=== PATIENT | female | born 1985 | race African-American/Black ===

== ENCOUNTER → 2023-01-31 10:39 | Outpatient (BNVA) | payer OTHER, SELFPAY | PROVIDERS: PCP Internal Medicine; Visit Provider Physician Assistant Surgical ==

== ENCOUNTER → 2023-02-14 08:04 | Outpatient (BNVA) | payer OTHER, SELFPAY | PROVIDERS: PCP Internal Medicine; Visit Provider Surgery ==

== ENCOUNTER 2023-02-27 07:36 | Outpatient (REF) | payer OTHER, SELFPAY ==
--- NOTE | ~2023-02-27 | XR_ITS ---
EXAMINATION: XR CHEST CLINICAL INFORMATION: Obesity COMPARISON: None available. TECHNIQUE: 2 views of the chest were obtained. FINDINGS: No significant abnormality is noted involving the heart, lungs, mediastinum, bony thorax or soft tissues. XR/XR chest 2V IMPRESSION: Unremarkable examination.
--- NOTE | 2023-02-27 08:01 | ECG_ITS ---
Test Reason : e66.9 Blood Pressure : / mmHG Vent. Rate : 083 BPM Atrial Rate : 083 BPM P-R Int : 122 ms QRS Dur : 088 ms QT Int : 386 ms P-R-T Axes : 028 019 -28 degrees QTc Int : 453 ms Normal sinus rhythm T wave abnormality, consider inferior ischemia Abnormal ECG No previous ECGs available Referred By: Brendon Otto Electronically Signed By:Anthony Curiel
[2023-02-27 08:09] LABS: MANUAL DIFF FLAG NO
[2023-02-27 08:43] LABS: Basophils Percent Auto 0.5 % (0-2); Eosinophils Absolute Auto 0.1 X10*3/uL (0.0-0.4); Eosinophils Percent Auto 1.1 % (0-4); Hematocrit 39.3 % (37.0-47.0); Hemoglobin 13.3 g/dl (12.0-16.0); Imm Gran Abs Auto 0.03 X10*3/uL (0.00-0.03); Imm Gran Pct Auto 0.3 % (0.0-0.4); Lymphocytes Absolute Auto 3.1 X10*3/uL (1.2-4.9); Lymphocytes Percent Auto 35.1 % (20-40); Mean Corpuscular HGB Conc 33.8 g/dl (31.0-35.0); Mean Corpuscular Hemoglobin 31.9 pg (27.0-33.0); Mean Corpuscular Volume 94.2 fL (80.0-98.0); Mean Platelet Volume 9.3 fL (9.4-12.3); Monocytes Absolute Auto 0.7 X10*3/uL (0.1-1.2); Monocytes Percent Auto 7.8 % (2-11); Neutrophils Absolute Auto 4.9 x10*3/uL (2.0-8.3); Neutrophils Percent Auto 55.2 % (45-73); Platelet Count 333 X10*3/uL (160-400); Red Blood Count 4.17 X10*6/uL (4.20-5.50); Red Cell Distribution Width 12.6 % (11.0-16.0); White Blood Count 8.9 X10*3/uL (4.8-10.8)
[2023-02-27 09:18] LABS: Estimated Average Glucose 108 mg/dL; Hemoglobin A1c % 5.4 %
[2023-02-27 09:25] LABS: Alanine Aminotransferase 23 U/L (0-31); Albumin Level 4.3 g/dL (3.5-5.0); Alkaline Phosphatase 30 U/L (39-117); Anion Gap 15 (12-20); Aspartate Amino Transferase 18 U/L (5-31); Bilirubin Total 0.7 mg/dL (0.0-1.0); Blood Urea Nitrogen 19 mg/dL (9-16); C Reactive Protein 0.27 mg/dL (< or = 0.50); Calcium 9.6 mg/dL (8.4-10.2); Carbon Dioxide 23 mmol/L (22-29); Chloride 107 mmol/L (96-108); Cholesterol 262 mg/dL; Estimated Glomerular Filt Rate 49; Glucose Random 111 mg/dL (60-115); HDL Cholesterol 42 mg/dL; Iron 88 mcg/dL (30-160); LDL Cholesterol Calculated 175 mg/dl; Percent Iron Saturation 24 % (15-50); Potassium 4.6 mmol/L (3.3-5.1); Sodium 140 mmol/L (135-145); Total Iron Binding Capacity 372 mcg/dL (228-428); Total Protein 7.5 g/dL (6.5-8.0); Triglycerides 226 mg/dL; Unsaturated Iron Binding 284 ug/dL
[2023-02-27 09:54] LABS: Ferritin 209 ng/mL (10-122); Folate 13.7 ng/mL (> or = 4.0); Insulin 24 uU/mL (2-29); TSH reflex Free T4 1.23 uIU/mL (0.32-4.0); Vitamin B12 304 pg/mL (200-900); Vitamin D 25-OH Total 38.9 ng/mL (>30)
[2023-03-03 15:54] LABS: Calcium (PTHI) 9.6 mg/dL (8.6-10.2); PTHI 70 pg/mL (16-77)
[2023-03-05 03:33] LABS: Zinc 71 mcg/dL (60-130)
[2023-03-06 14:07] LABS: Vitamin A 92 mcg/dL (38-98)
[2023-03-08 07:18] LABS: Vitamin B1 18 nmol/L (8-30)
== END 2023-02-27 07:37 | disposition home or self-care (01) ==
LOC: HO.XRAY 07:36
PROVIDERS: PCP Internal Medicine; Visit Provider Surgery
DX: E66.9 Obesity, unspecified (principal); G47.33 Obstructive sleep apnea (adult) (pediatric); I10 Essential (primary) hypertension; K21.9 Gastro-esophageal reflux disease without esophagitis; Z68.39 Body mass index [BMI] 39.0-39.9, adult; Z99.89 Dependence on other enabling machines and devices
CPT/HCPCS: 36415; 71046; 80053; 80061; 82306; 82607; 82728; 82746; 83036; 83525; 83540; 83970; 84425; 84443; 84590; 84630; 85025; 86140; 93005

== ENCOUNTER 2023-03-07 08:55 | Outpatient (REF) | payer OTHER, SELFPAY ==
--- NOTE | ~2023-03-07 | US_ITS ---
EXAMINATION: US COMPLETE ABDOMEN WITH LIVER ELASTOGRAPHY CLINICAL INFORMATION: Obesity. COMPARISON: None available. TECHNIQUE: Real-time imaging of the abdominal viscera. Noninvasive ultrasound liver fibrosis assessment is performed using Jesenia ElastPQ point quantification shear wave elastography (2D-SWE) with a C5-2 MHz transducer. Multiple elastography samples are obtained. FINDINGS: PANCREAS: Normal. The visualized pancreatic head and body are normal in appearance. The remainder of the pancreas is obscured from visualization by the overlying bowel gas. ABDOMINAL AORTA: The proximal, middle, and distal aortic segments are normal in caliber. INFERIOR VENA CAVA: Visualized portions are normal. LIVER: The liver demonstrates normal size, contour and mildly increased echogenicity. No focal lesion or intrahepatic biliary duct dilatation. The right lobe measures 18.1 cm in length. The left lobe measures 12.7 cm in length. Portal flow is towards the liver (hepatopetal). Shear wave liver elastography median stiffness is 1.73 m/s (reference: normal median stiffness is 1.3 m/s or less). IQR/median stiffness to assess sampling precision is 0.12 (reference: good quality data set is IQR/median stiffness of 0.15 or less). GALLBLADDER: Normal. The gallbladder is physiologically distended without evidence of stones, sludge, polyps, wall thickening or pericholecystic fluid. COMMON BILE DUCT: Normal in caliber measuring 0.3 cm in diameter. RIGHT KIDNEY: Normal. No hydronephrosis. No renal calculi or focal parenchymal lesions. The kidney measures 8.9 cm in maximum dimension. LEFT KIDNEY: Normal. No hydronephrosis. No renal calculi or focal parenchymal lesions. The kidney measures 9.9 cm in maximum dimension. SPLEEN: Normal. The spleen measures 8.8 cm in maximum dimension. FREE FLUID: None. US/US abdomen comp w elastography IMPRESSION: 1. There is generalized increase in hepatic echotexture, consistent with fatty infiltration or hepatocellular disease. Please correlate clinically. No focal hepatic mass or intrahepatic biliary dilatation is seen. 2. Liver elastography: Measurements are suggestive of compensated advanced chronic liver disease but need further test for confirmation. REFERENCE: Society of Radiologists in Ultrasound Liver Stiffness Thresholds (2020): LIVER STIFFNESS THRESHOLDS: *Liver Stiffness equal or less than 1.3 m/s: High probability of being normal. *Liver Stiffness less than 1.7 m/s: In the absence of other known clinical signs, rules out compensated advanced chronic liver disease. *Liver Stiffness 1.7-2.1 m/s: Suggestive of compensated advanced chronic liver disease but need further test for confirmation. *Liver Stiffness over 2.1 m/s: Rules in compensated advanced chronic liver disease. *Liver Stiffness over 2.4 m/s: Suggestive of clinically significant portal hypertension. QUALITY OF DATA SET: *IQR/Median value equal or less than 0.15 implies a quality data set. *IQR/Median value over 0.15 implies a poor quality data set. SIGNIFICANT CHANGE FROM PRIOR EXAM: Significant change if liver stiffness measurement is 10% or greater from prior exam. OTHER CONSIDERATIONS: The stage of liver fibrosis may be overestimated in the setting of acute hepatitis, liver inflammation, elevated liver function tests, hepatic vascular congestion, obstructive cholestasis, non-fasting state, and infiltrative diseases such as amyloidosis and lymphoma. In some patients with NAFLD, the liver stiffness thresholds for compensated advanced chronic liver disease may be lower. In causes other than viral hepatitis and NAFLD, liver stiffness thresholds are not well established.
[2023-03-09 15:00] LABS: H Pylori Breath Test Negative (Negative)
== END 2023-03-07 08:56 | disposition home or self-care (01) ==
LOC: HO.US 08:55
PROVIDERS: PCP Internal Medicine; Visit Provider Surgery
DX: E66.9 Obesity, unspecified (principal); G47.33 Obstructive sleep apnea (adult) (pediatric); I10 Essential (primary) hypertension; K21.9 Gastro-esophageal reflux disease without esophagitis; Z68.39 Body mass index [BMI] 39.0-39.9, adult; Z99.89 Dependence on other enabling machines and devices
CPT/HCPCS: 36415; 76705; 76981; 83013; 99211

== ENCOUNTER → 2023-03-28 11:01 | Outpatient (BNVA) | payer OTHER, SELFPAY | PROVIDERS: PCP Internal Medicine; Visit Provider Dietitian, Registered | DX: E66.9 Obesity, unspecified (principal) | CPT/HCPCS: 97802 ==

== ENCOUNTER → 2023-03-31 14:00 | Outpatient (BNVA) | payer OTHER, SELFPAY | PROVIDERS: PCP Internal Medicine; Visit Provider Counselor Mental Health ==

== ENCOUNTER → 2023-04-04 08:22 | Outpatient (REF) | payer OTHER, SELFPAY ==
--- NOTE | 2023-04-04 08:33 | CA_ITS ---
Acquisition Time: 2023-04-04 08:39:21 Total Exercise Time: 00:05:30 Test Indications: abn ekg, preop Medications: see h Protocol: KOJO Max HR: 173 BPM 94% of Pred: 183 BPM Max BP: 162/088 mmHG Max Work Load: 7.0 METS Exercise stress test with exercise 5 min 30 sec of Kojo protocol, achieving 94% MPHR, 7 METs, without anginal symptoms, without arrythmia, with normotensive response to exercise, without EKG changes meeting criteria for ischemia, with nonspecific T wave abnormality at baseline at baseline which improves then returns in later recovery. Test reviewed with Dr Garcia Referred By: Brendon Otto Overread By: VICENTE DALE
== END ==
LOC: HO.CARD 08:22
PROVIDERS: Visit Provider Surgery
DX: R94.31 Abnormal electrocardiogram [ECG] [EKG] (principal)
CPT/HCPCS: 93017

== ENCOUNTER → 2023-04-11 11:53 | Outpatient (BNVA) | payer OTHER, SELFPAY | PROVIDERS: Visit Provider Surgery | DX: E66.9 Obesity, unspecified (principal); Z68.39 Body mass index [BMI] 39.0-39.9, adult; G47.33 Obstructive sleep apnea (adult) (pediatric); Z99.89 Dependence on other enabling machines and devices; I10 Essential (primary) hypertension; K21.9 Gastro-esophageal reflux disease without esophagitis ==

== ENCOUNTER 2023-05-02 08:52 | Outpatient (REF) | payer OTHER, SELFPAY ==
--- NOTE | ~2023-05-02 | FL_ITS ---
PROCEDURE: XR FLUOROSCOPY UPPER GI WITH AIR CLINICAL INFORMATION: Obesity. COMPARISON: None available. TECHNIQUE: Routine upper GI air-contrast study was performed following oral administration of thick barium and effervescent granules in upright and lying position. FINDINGS: Following oral administration of thick barium and effervescent granules there is normal propagation of bolus from the oral cavity through the pharynx, esophagus into stomach without obstruction, narrowing or stricture. The course, caliber and peristalsis of the stomach is normal. A transitional sliding hiatal hernia seen in supine position with moderate gastroesophageal reflux. Otherwise rest of the course, caliber and peristalsis of the stomach, duodenal bulb and the sweep is normal. The mucosal pattern of stomach, duodenal bulb and the sweep is normal. FLUOROSCOPY TIME: 1.0 minutes DOSE AREA PRODUCT: 32.667 uGy-m2 (microgray-meter squared) FL/FL upper GI w air IMPRESSION: Mild gastroesophageal reflux with small sliding transitional hiatal hernia.
== END 2023-05-02 08:53 | disposition home or self-care (01) ==
LOC: HO.XRAY 08:52
PROVIDERS: Visit Provider Surgery
DX: E66.9 Obesity, unspecified (principal); G47.33 Obstructive sleep apnea (adult) (pediatric); I10 Essential (primary) hypertension; K21.9 Gastro-esophageal reflux disease without esophagitis; Z68.39 Body mass index [BMI] 39.0-39.9, adult; Z99.89 Dependence on other enabling machines and devices
CPT/HCPCS: 74246

== ENCOUNTER → 2023-05-02 08:53 | Outpatient (BNV) | payer OTHER, SELFPAY | PROVIDERS: Visit Provider Radiology Diagnostic Radiology | DX: E66.9 Obesity, unspecified (principal) | CPT/HCPCS: 74246 ==

== ENCOUNTER 2023-05-08 16:33 | Outpatient (AMB) | payer OTHER, SELFPAY ==
--- NOTE | 2023-05-08 16:35 | MHC.OFFVISWM ---
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 Allergies No Known Allergies Allergy (Verified 03/07/23 09:52) Medication List - Last Reconciled 05/08/23 by VICKY Kan cholecalciferol (vitamin D3) 25 mcg PO DAILY CPAP (CPAP Machine/Device) As directed lisdexamfetamine (Vyvanse) 30 mg PO DAILY lisinopril-hydrochlorothiazide 10-12.5 mg 1 tab PO DAILY mecobalamin (vitamin B12) 1,000 mcg sublingual DAILY omeprazole magnesium (Prilosec OTC) 20 mg PO DAILY PRN HPI HPI Comments History of Present Illness Details 37 yo female returns to the [facility] clinic for pre-op care Initial weight on 02/14/23 was 244.8 with a BMI of 39.5 Weight today is 235.5 pounds Weight loss is 9.3 pounds or 3.7 % TBWL She feels as though she is doing well. She states she there are times when she wants real food and she chooses a salad or something healthy and she is trying to make better choices. In the last 4 weeks she has had off meal plan things 1 x per week. She feels as though the afternoon is the most challenging time. Meal plan: 2 Isopure protein shakes (HALF scoop EACH in 8oz almond milk each) at 8am-10am and 11am-1pm, 1 Zone Perfect protein bar? at 2pm-4pm, HALF protein bar at 5-6pm, dinner at 7pm (8 forks of protein and 8 forks of salad/vegetables), and/or an additional 4 forks rice 1/2 bar at 9-10pm AND one more protein bar after dinner at 9pm-11pm. Drinking 64 oz water daily, Exercise plan: walking, 3-4 days per week, 30 minutes, 200-300 calories. work out videos, 2-3 days per week ordered an under the desk peddler. [facility] Medical History BMI 39.0-39.9,adult GERD (gastroesophageal reflux disease) Hypertension Obesity Obstructive sleep apnea on CPAP Surgical History Hx of carpal tunnel repair Hx of section Hx of wisdom tooth extraction Family History Mother Hypertension Diabetes High cholesterol Father ADD (attention deficit disorder) Hypertension Sister No problems noted. Sister No problems noted. Daughter Asthma Daughter Asthma Son Asthma Social History Alcohol intake: current Alcohol intake frequency: a few times a month Patient Tobacco Use Status: Never used Tobacco Assessment & Plan Assessment & Plan (1) Obesity: Code(s): E66.9 - Obesity, unspecified Plan: change meal plan slightly to: 2 Isopure protein shakes (HALF scoop EACH in 8oz almond milk each) at 8am-10am and 11am-1pm, 1 Zone Perfect protein bar? at 2pm-4pm, HALF protein bar at 5-6pm, dinner at 7pm (8 forks of protein and 8 forks of salad/vegetables), 1/2 bar at 9-10pm If she needs/wants, she can have a whole bar either before or after dinner instead of splitting 1/2 before and 1/2 after dinner. remove 4 forks rice Increase exercise to daily and consider walking and home videos daily to improve weight loss Reminded of upcoming appts Telehealth Telehealth Location of provider rendering services: practice address Location of patient: other Patient Identification confirmed using: Name, : Yes Telehealth method: video Patient verbally consented to treatment: Yes Patient verbally consented to billing insurance company: Yes Patient informed of any privacy concerns related to visit: Yes Minutes spent on Phone/Video with Pt.: 30 Coding Level of Care Code Tele Est Pt Level 3 (28527) Diagnoses Obesity E66.9 Time Spent (min) 35
[2023-05-08 16:38] VITALS: BMI 38.0
== END 2023-05-08 17:37 | disposition home or self-care (01) ==
LOC: HO.HBS 16:34
PROVIDERS: Visit Provider Physician Assistant Surgical
DX: E66.9 Obesity, unspecified (principal); Z68.38 Body mass index [BMI] 38.0-38.9, adult
CPT/HCPCS: 99213

== ENCOUNTER → 2023-05-08 16:33 | Outpatient (BNVA) | payer OTHER, SELFPAY | PROVIDERS: Visit Provider Physician Assistant Surgical ==

== ENCOUNTER 2023-05-22 16:08 | Outpatient (AMB) | payer OTHER, SELFPAY ==
--- NOTE | 2023-05-22 16:03 | MHC.AMNUTRGE ---
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 Normal weight until puberty. High school ate well and exercised and lost weight. got with her daughter and gained a lot. The once she had her child, she lost the weight again. Now has 3 children and really struggling Dietary counseling reduction Diagnosis Nutrition problem #1 overweight/obesity As related to (etiology) #1 excess energy intake and physical inactivity As evidenced by (sign/symptom) #1 high BMI Monitoring/Goals Nutrition problem monitoring total energy intake, level of knowledge/skill, total PRO intake, total CHO intake and weight Outcome progress progressing Learning/Education Readiness to learn good Stages of change action Educational materials provided Yes Most Recent Diabetes Results: No Data to Display [facility] Medical History BMI 39.0-39.9,adult GERD (gastroesophageal reflux disease) Hypertension Obesity Obstructive sleep apnea on CPAP Surgical History Hx of carpal tunnel repair Hx of section Hx of wisdom tooth extraction Family History Mother Hypertension Diabetes High cholesterol Father ADD (attention deficit disorder) Hypertension Sister No problems noted. Sister No problems noted. Daughter Asthma Daughter Asthma Son Asthma Social History Alcohol intake: current Alcohol intake frequency: a few times a month Patient Tobacco Use Status: Never used Tobacco Assessment & Plan Assessment & Plan (1) Obesity (BMI 30-39.9): Code(s): E66.9 - Obesity, unspecified Patient Instructions: Patient is cleared from a nutrition standpoint for bariatric surgery. Educational requirements have been completed. Reviewed vitamin supplementation and commitment to protein shake for several months post surgery. Encouraged communication with office as needed Telehealth Telehealth Location of provider rendering services: practice address Location of patient: address on file Patient Identification confirmed using: Name, : Yes Telehealth method: voice only Patient verbally consented to treatment: Yes Patient verbally consented to billing insurance company: Yes Patient informed of any privacy concerns related to visit: Yes Minutes spent on Phone/Video with Pt.: 15 Coding Level of Care Code Nutr Indiv Subseq (37909) Diagnoses Obesity (BMI 30-39.9) E66.9 Time Spent (min) 15
[2023-05-22 16:15] VITALS: BMI 37.9
== END 2023-05-22 16:14 | disposition home or self-care (01) ==
LOC: HO.HBS 16:08
PROVIDERS: Visit Provider Dietitian, Registered
DX: E66.9 Obesity, unspecified (principal)

== ENCOUNTER → 2023-05-22 16:08 | Outpatient (BNVA) | payer OTHER, SELFPAY | PROVIDERS: Visit Provider Dietitian, Registered | DX: E66.9 Obesity, unspecified (principal); Z68.37 Body mass index [BMI] 37.0-37.9, adult; Z71.3 Dietary counseling and surveillance | CPT/HCPCS: 97803 ==

== ENCOUNTER 2023-05-30 08:26 | Outpatient (AMB) | payer OTHER, SELFPAY ==
--- NOTE | 2023-05-30 13:43 | A.OFFVIS_ITS ---
Intake VS Expanded 05/30/23 13:50 Height 5 ft 6 in Weight 230 lb 8 oz BMI 37.2 Body Fat 108.9 Body Fat Percentage 47.2 Free Fat Mass 121.8 Visceral Mass 18 Water Mass 83.5 BMR 1,774 Intake Visit Reasons: TV Follow Up SWL Allergies No Known Allergies Allergy (Verified 03/07/23 09:52) HPI TV Follow Up SWL HPI Details Start time: 1.35pm, End time: 1.55pm ?I spent 15 minutes speaking with the patient on the phone plus an additional 5 minutes reviewing and updating records for a total of 20 minutes HPI Comments History of Present Illness Details Overall weight loss: 14lbs, or 5.72% TBWL Is doing 2 ISO-100 protein shakes (1/2 scoop in almond milk), 2 Zone Perfect protein bars and one meal (8 forks of protein and 8 forks of salad or vegetables) Exercise: walking outside [facility] Medical History BMI 39.0-39.9,adult GERD (gastroesophageal reflux disease) Hypertension Obesity Obstructive sleep apnea on CPAP Surgical History Hx of carpal tunnel repair Hx of section Hx of wisdom tooth extraction Family History Mother Hypertension Diabetes High cholesterol Father ADD (attention deficit disorder) Hypertension Sister No problems noted. Sister No problems noted. Daughter Asthma Daughter Asthma Son Asthma Social History Alcohol intake: current Alcohol intake frequency: a few times a month Patient Tobacco Use Status: Never used Tobacco Assessment & Plan Assessment & Plan (1) Obesity: Code(s): E66.9 - Obesity, unspecified Plan: 1. Continue same nutritional plan of 2 ISO-100 protein shakes (1/2 scoop in almond milk), 2 Zone Perfect protein bars and one meal (8 forks of protein and 8 forks of salad or vegetables) 2. Exercise: Start Elliptical with an incline of 2.0 and resistance of 4.0. Increase resistance by 1 every 3 min to a max resistance of 10.0, and repeat cycles for 300 calories. Goal is to burn 2000 calories per week on exercise, which means either 300 calories daily, or 400 calories 5 days per week, or 500 calories 4 days per week, or 650 calories 3 days per week. 3. Continue to send me weight measurements weekly on Fridays (2) BMI 37.0-37.9, adult: Code(s): Z68.37 - Body mass index [BMI] 37.0-37.9, adult Telehealth Telehealth Location of provider rendering services: practice address Location of patient: address on file Patient Identification confirmed using: Name, : Yes Telehealth method: voice only Patient verbally consented to treatment: Yes Patient verbally consented to billing insurance company: Yes Patient informed of any privacy concerns related to visit: Yes Minutes spent on Phone/Video with Pt.: 20 Coding Level of Care Code Tele Est Pt Level 3 (19845) Diagnoses Obesity E66.9 BMI 37.0-37.9, adult Z68.37 Time Spent (min) 20
[2023-05-30 13:50] VITALS: BMI 37.2
== END 2023-05-30 13:56 | disposition home or self-care (01) ==
LOC: HO.HBS 08:26
PROVIDERS: Visit Provider Surgery
DX: E66.9 Obesity, unspecified (principal); Z68.37 Body mass index [BMI] 37.0-37.9, adult
CPT/HCPCS: 99213

== ENCOUNTER → 2023-05-30 08:26 | Outpatient (BNVA) | payer OTHER, SELFPAY | PROVIDERS: Visit Provider Surgery ==

== ENCOUNTER 2023-06-20 07:57 | Outpatient (AMB) | payer OTHER, SELFPAY ==
--- NOTE | 2023-06-17 13:38 | A.OFFVIS_ITS ---
Intake VS Expanded 06/17/23 14:44 Height 5 ft 6 in Weight 228 lb 4 oz BMI 36.8 Body Fat 106.2 Body Fat Percentage 46.5 Free Fat Mass 122 Visceral Mass 18 Water Mass 83.5 BMR 1,763 Intake Visit Reasons: TV Pre Op LSG 07/08/23 Allergies No Known Allergies Allergy (Verified 06/17/23 13:38) Medication List - Last Reconciled 06/17/23 by Brendon Otto MD cholecalciferol (vitamin D3) 25 mcg PO DAILY CPAP (CPAP Machine/Device) As directed lisdexamfetamine (Vyvanse) 30 mg PO DAILY lisinopril-hydrochlorothiazide 10-12.5 mg 1 tab PO DAILY mecobalamin (vitamin B12) 1,000 mcg sublingual DAILY ondansetron 4 mg PO Q12H pantoprazole 40 mg PO DAILY polyethylene glycol 3350 (Miralax) 17 grams PO DAILY sucralfate 10 mL PO BID HPI TV Pre Op LSG 07/08/23 HPI Details Start time: 8.30am, End time: 9am I spent 25 minutes speaking with the patient on the phone plus an additional 5 minutes reviewing and updating records for a total of 30 minutes HPI Comments History of Present Illness Details Overall weight loss: 16.4lbs, or 6.7% TBWL Is doing 2 Iso-1000 Whey protein shakes (1/2 scoop in almond milk), 2 Zone Perfect protein bars and one meal (8 forks of protein and 8 forks of salad or vegetables) Exercise: Is doing the Elliptical x3-4/week for 250-300 calories PFSH Medical History BMI 39.0-39.9,adult GERD (gastroesophageal reflux disease) Hypertension Obesity Obstructive sleep apnea on CPAP Surgical History Hx of carpal tunnel repair Hx of section Hx of wisdom tooth extraction Family History Mother Hypertension Diabetes High cholesterol Father ADD (attention deficit disorder) Hypertension Sister No problems noted. Sister No problems noted. Daughter Asthma Daughter Asthma Son Asthma Social History Alcohol intake: current Alcohol intake frequency: a few times a month Patient Tobacco Use Status: Never used Tobacco Physical Exam Vital Signs: BMI result Body Mass Index 36.8 Assessment & Plan Assessment & Plan (1) Obesity: Code(s): E66.9 - Obesity, unspecified Plan: 1. Plan for lap sleeve gastrectomy including upper GI endoscopy. All tests has been completed and reviewed and the patient is cleared for the surgery. If diaphragmatic or ventral hernias are present at time of surgery, these will be repaired laparoscopically as well. Risks and complications were discussed in detail including possible conversion to an open procedure, anastomotic leak, bleeding requiring transfusion, small bowel obstruction, , DVT and pulmonary embolism, cardiac, or pulmonary complications, as extermination supervisor complications such as anastomotic ulcer, insufficient weight loss and vitamin deficiencies. I emphasized the importance of close follow-up, adherence to instructions and good communication. So far she has proven to be an excellent communicator and very compliant with all our directions accomplishing a great weight loss. I believe that she is an excellent candidate and she is ready. 2. Preop prescriptions were provided and explained the purpose of each one. Need to be purchased preop. Start Pantoprazole now as you get it from the pharmacy, 1 pill per day. Sucralfate and Zofran are for after surgery as needed. 3. Bowel prep: please do 7 packets of Miralax mixing each one with a an 8oz glass of water, crystal light, gatorade zero, or propel on 07/06/23 and the same amount on 07/07/23. Continue the protein shakes during the bowel prep. 4. Needs to purchase 1oz medicine cups . 5. Needs to purchase Children's liquid Tylenol for postop pain control. 6. Avoid the Vyvanse, aspirin, motrin, Advil, Aleve, Ibuprofen, Naproxyn. Tylenol is OK. 7. She needs to purchase the Celebrate 4:1 protein shakes from the hospital's gift shop. 8. Will do basic preop blood work-up any day between Friday06/30/23 and Friday07/04/23 fasting for 12 hours and is scheduled to see the Anesthesiologist prior to the day of surgery. 9. Importance of adherence to postop folllow-up and recommendations was underscored and she understands that. 10. Stop food and bars as of Friday06/24/23 and continue with 4 [id number] protein shakes (1/2 scoop in 8oz almond milk) at 8am-10am, 11am-1pm, 2pm-4pm, 5pm-7pm and one more Pure protein shake with ONE scoop in 8oz of almond milk at 8pm-10pm 11. No soups, broths or V8 12. The patient's medical history has been reviewed and they are considered low risk for post op DVT and therefore DVT prophylaxis is not considered necessary. Travel after surgery was reviewed. The patient has not disclosed any travel plans during the first 30 days after surgery and they have been advised that within the first 30 days after surgery any bus, plane, train or car travel over 2 hours in duration is contraindicated due to the possibility of developing blood clots from immobility. Any travel, needs to include periods of ambulation of 10 minutes in duration every 2 hours. Patient was instructed to discuss any plans for travel during this period with their bariatric surgeon. 13. Use your CPAP daily and bring it to the hospital with your mask 14. Please take at the day of surgery the following medications: LISINOPRIL WITH HYDROCHLOROTHIAZIDE 15. Stop any control pills and don't use them for one month after surgery 16. Absolutely no smoking or vaping, or marijuana until the surgery and for at least the first 4 weeks. Only nicotine patches are allowed. 17. Send me weight measurements on and then on the day of surgery before you go to the hospital. 18. Avoid any steroids by mouth for any reason. Let me know if someone prescribes them to you (2) BMI 36.0-36.9,adult: Code(s): Z68.36 - Body mass index [BMI] 36.0-36.9, adult Orders: Orders TSH reflex Free T4 06/17/23 E66.9 - Obesity, unspecified, Z68.36 - Body mass index [BMI] 36.0-36.9, adult Type and Screen 06/17/23 E66.9 - Obesity, unspecified, Z68.36 - Body mass index [BMI] 36.0-36.9, adult Partial Thromboplastin Time 06/17/23 E66.9 - Obesity, unspecified, Z68.36 - Body mass index [BMI] 36.0-36.9, adult Lipid Panel 06/17/23 E66.9 - Obesity, unspecified, Z68.36 - Body mass index [BMI] 36.0-36.9, adult Comprehensive Met. Panel 06/17/23 E66.9 - Obesity, unspecified, Z68.36 - Body mass index [BMI] 36.0-36.9, adult Prothrombin Time INR 06/17/23 E66.9 - Obesity, unspecified, Z68.36 - Body mass index [BMI] 36.0-36.9, adult C Reactive Protein 06/17/23.9 - Obesity, unspecified, Z68.36 - Body mass index [BMI] 36.0-36.9, adult Hemoglobin A1c 06/17/23.9 - Obesity, unspecified, Z68.36 - Body mass index [BMI] 36.0-36.9, adult Complete Blood Count Auto Diff 06/17/23 E6. - Obesity, unspecified, Z68.36 - Body mass index [BMI] 36.0-36.9, adult Insulin 06/17/23 E66.9 - Obesity, unspecified, Z68.36 - Body mass index [BMI] 36.0-36.9, adult Medications: New pantoprazole 40 mg PO DAILY 30 tabs 2RF K21.9 - Gastro-esophageal reflux disease without esophagitis sucralfate 10 mL PO BID 400 mL 2RF K21.9 - Gastro-esophageal reflux disease without esophagitis ondansetron Only take one every 12 hours as needed if you have nausea 4 mg PO Q12H 20 tabs 0RF nausea and vomiting R11.0 - Nausea polyethylene glycol 3350 (Miralax) Mix each packet with 8oz of water, Crystal light, or Gatorade zero, or Propel and do 7 packets on 07/06/23 and another 7 packets on 07/07/23 17 grams PO DAILY 14 ea 0RF Z01.818 - Encounter for other preprocedural examination Telehealth Telehealth Location of provider rendering services: practice address Location of patient: address on file Patient Identification confirmed using: Name, : Yes Telehealth method: voice only Patient verbally consented to treatment: Yes Patient verbally consented to billing insurance company: Yes Patient informed of any privacy concerns related to visit: Yes Minutes spent on Phone/Video with Pt.: 30 Coding Level of Care Code Tele Est Pt Level 4 (47933) Diagnoses Obesity E66.9 BMI 36.0-36.9,adult Z68.36 Time Spent (min) 30
[2023-06-17 14:44] VITALS: BMI 36.8
== END 2023-06-20 09:26 | disposition home or self-care (01) ==
PROVIDERS: PCP Internal Medicine; Visit Provider Surgery
DX: E66.9 Obesity, unspecified (principal); Z68.36 Body mass index [BMI] 36.0-36.9, adult
CPT/HCPCS: 99214

== ENCOUNTER → 2023-06-20 07:57 | Outpatient (BNVA) | payer OTHER, SELFPAY | PROVIDERS: PCP Internal Medicine; Visit Provider Surgery | DX: E66.9 Obesity, unspecified (principal); Z68.36 Body mass index [BMI] 36.0-36.9, adult; K21.9 Gastro-esophageal reflux disease without esophagitis; R11.0 Nausea; Z01.818 Encounter for other preprocedural examination ==

== ENCOUNTER 2023-07-02 08:49 | Outpatient (REF) | payer OTHER, SELFPAY ==
[2023-07-02 09:07] LABS: MANUAL DIFF FLAG NO
[2023-07-02 10:19] LABS: Basophils Percent Auto 0.5 % (0-2); Eosinophils Absolute Auto 0.1 X10*3/uL (0.0-0.4); Eosinophils Percent Auto 0.9 % (0-4); Hematocrit 37.7 % (37.0-47.0); Hemoglobin 12.7 g/dl (12.0-16.0); Imm Gran Abs Auto 0.02 X10*3/uL (0.00-0.03); Imm Gran Pct Auto 0.2 % (0.0-0.4); Lymphocytes Absolute Auto 2.2 X10*3/uL (1.2-4.9); Lymphocytes Percent Auto 27.4 % (20-40); Mean Corpuscular HGB Conc 33.7 g/dl (31.0-35.0); Mean Platelet Volume 9.6 fL (9.4-12.3); Monocytes Absolute Auto 0.5 X10*3/uL (0.1-1.2); Monocytes Percent Auto 6.3 % (2-11); Neutrophils Absolute Auto 5.3 x10*3/uL (2.0-8.3); Neutrophils Percent Auto 64.7 % (45-73); Platelet Count 352 X10*3/uL (160-400); Red Blood Count 3.97 X10*6/uL (4.20-5.50); White Blood Count 8.1 X10*3/uL (4.8-10.8)
[2023-07-02 10:31] LABS: Prothrombin Time 12.4 SEC (11.1-13.3)
[2023-07-02 10:34] LABS: Partial Thromboplastin Time 32.3 SEC (26.0-36.4)
[2023-07-02 11:46] LABS: Alanine Aminotransferase 22 U/L (0-31); Albumin Level 4.3 g/dL (3.5-5.0); Alkaline Phosphatase 27 U/L (39-117); Anion Gap 13 (12-20); Aspartate Amino Transferase 17 U/L (5-31); Bilirubin Total 0.7 mg/dL (0.0-1.0); Blood Urea Nitrogen 19 mg/dL (9-16); C Reactive Protein 0.44 mg/dL (< or = 0.50); Calcium 9.9 mg/dL (8.4-10.2); Carbon Dioxide 24 mmol/L (22-29); Chloride 105 mmol/L (96-108); Cholesterol 227 mg/dL (<200); Estimated Glomerular Filt Rate 48; Glucose Random 102 mg/dL (60-115); HDL Cholesterol 36 mg/dL (>40); LDL Cholesterol Calculated 156 mg/dL (<100); Potassium 3.6 mmol/L (3.3-5.1); Sodium 138 mmol/L (135-145); Total Protein 7.7 g/dL (6.5-8.0); Triglycerides 176 mg/dL (<150)
[2023-07-02 11:51] LABS: Insulin 13 uU/mL (2-29); TSH reflex Free T4 0.78 uIU/mL (0.32-4.0)
[2023-07-02 12:21] LABS: Estimated Average Glucose 108 mg/dL; Hemoglobin A1c % 5.4 % (<6.0)
== END 2023-07-02 08:50 | disposition home or self-care (01) ==
LOC: HO.LAB 08:49
PROVIDERS: PCP Internal Medicine; Visit Provider Surgery
DX: E66.9 Obesity, unspecified (principal); Z68.36 Body mass index [BMI] 36.0-36.9, adult
CPT/HCPCS: 36415; 80053; 80061; 83036; 83525; 84443; 85025; 85610; 85730; 86140

== ENCOUNTER 2023-07-08 06:18 | Inpatient (IN) | payer OTHER, SELFPAY ==
[2023-06-27 13:51] VITALS: BMI 36.3
--- NOTE | 2023-07-02 23:13 | MHC.SHP ---
Pre-Procedural Eval Section A Date of Service: 07/02/23 The patient is an INPATIENT: Yes The History & Physical has been completed within 30 days and I have reviewed it.: Yes Section B Chief Complaint: Obesity, unspecified Relevant Family History (Specify if Yes): No Relevant Social History: None Present Medications: None Medical History: No relevant PMH History of Previous Operations: No relevant previous surgery Allergies: Allergies Allergy/AdvReac Type Severity Reaction Status Date / Time No Known Allergies Allergy Verified 06/27/23 13:48 Review of Systems Sugical H&P ROS: Negative: Constitution, Cardiovascular, Respiratory, Neurological, Psychiatric, Hem-Onc, Allergic/Immunologic, Gastrointestinal, Genitourinary, Musculoskeletal, Integumentary, Endocrine and Eyes/Ears/Nose/Throat Exam Surgical H&P Exam: Normal: HEENT, Normal: Heart, Normal: Lungs, Normal: Extremities, Normal: Abdomen, Normal: Skin and Normal: Neurological Plan Diagnosis/Plan: Unchanged I have reviewed the history and physical and performed a pertinent physical examination on my patient. No changes have occurred unless specified. Time Spent With Patient Time: Total time managing care of this patient today ____ minutes.
--- NOTE | 2023-07-07 09:14 | P.CONAN_ITS ---
Documented by User: Cierra Hernandez NP 07/07/23 09:16 HPI - Anesthesia Eval Consult details Narrative: 37yo F for Gastrectomy Sleeve,EGD,poss diaphragmatic hernia,poss ventral hernia,poss open PMFSH Active Problems Active Problems: All Active Problems (Updated 06/17/23 @ 13:34 by Brendon Otto MD) BMI 36.0-36.9,adult (Acute) BMI 37.0-37.9, adult (Acute) Vitamin B12 deficiency (Acute) GERD (gastroesophageal reflux disease) (Acute) Hypertension (Acute) Obstructive sleep apnea on CPAP (Acute) BMI 39.0-39.9,adult (Acute) Obesity (Acute) Past Medical History Medical History (Updated 07/08/23 @ 07:50 by Brendon Otto MD) ADHD GERD (gastroesophageal reflux disease) Hypertension Obstructive sleep apnea on CPAP BMI 39.0-39.9,adult Obesity Family History Family History Mother Hypertension Diabetes High cholesterol Father ADD (attention deficit disorder) Hypertension Sister No problems noted. Sister No problems noted. Daughter Asthma Daughter Asthma Son Asthma Surgical History Surgical History Hx of carpal tunnel repair Hx of wisdom tooth extraction Hx of section Social History Social History (Updated 06/27/23 @ 13:51 by Cnidy Alex RN) Household Members: Family Housing: House Are you a primary client care specialist to a significant other at home: Yes (children, supportive family) Do you presently have visiting nurse or other home services: No Alcohol intake: current Alcohol intake frequency: a few times a month Patient Tobacco Use Status: Never used Tobacco Use of substances other than those prescribed or required for medical reasons: No Have you been hit, kicked, punched, or otherwise hurt by someone within the past year? If so, by whom?: No Are you DNR?: No Advance Directives: No Advance Directives Information Provided: Yes Advance Directives on File: No Recently lost weight without trying: No Nutrition Risks: No Nutritional Risk Patient : No FDLMP: 06/25/2023 : No Poor oral hygiene: No Meds Allergies Allergy/AdvReac Type Severity Reaction Status Date / Time No Known Allergies Allergy Verified 07/08/23 06:41 Home Medications Medication Instructions Recorded Confirmed Last Taken Type CPAP (CPAP Machine/Device) 01/31/23 06/17/23 Unknown History lisdexamfetamine 30 mg capsule 30 mg PO DAILY 01/31/23 06/27/23 07/07/23 History (Vyvanse) lisinopril 10 1 tab PO DAILY 01/31/23 06/27/23 07/07/23 History mg-hydrochlorothiazide 12.5 mg tablet cholecalciferol (vitamin D3) 25 25 mcg PO DAILY 02/14/23 06/27/23 07/06/23 History mcg (1,000 unit) capsule multivitamin 1 tab PO DAILY 06/27/23 06/27/23 07/06/23 History Exam Exam Date and Time: July 07, [id number] Height,Weight and Vital Signs: Height 5 ft 6 in Weight 102.058 kg Pertinent Lab Results Pertinent Lab Results: Laboratory Tests 07/02/23 09:05 WBC 8.1 Hgb 12.7 Hct 37.7 Plt Count 352 Sodium 138 Potassium 3.6 D Chloride 105 Carbon Dioxide 24 BUN 19 H Creatinine 1.26 Narrative Narrative: EKG 02/2023 Vent. Rate : 083 BPM Atrial Rate : 083 BPM P-R Int : 122 ms QRS Dur : 088 ms QT Int : 386 ms P-R-T Axes : 028 019 -28 degrees QTc Int : 453 ms Normal sinus rhythm T wave abnormality, consider inferior ischemia Abnormal ECG No previous ECGs available Exercise Stress 03/2023 Protocol: ART Max HR: 173 BPM 94% of Pred: 183 BPM Max BP: 162/088 mmHG Max Work Load: 7.0 METS Exercise stress test with exercise 5 min 30 sec of Art protocol, achieving 94% MPHR, 7 METs, without anginal symptoms, without arrythmia, with normotensive response to exercise, without EKG changes meeting criteria for ischemia, with nonspecific T wave abnormality at baseline at baseline which improves then returns in later recovery. Test reviewed with Dr Garcia Assessment and Plan Assessment Anesthesia Assessment: Chart Reviewed Documented by User: Arhcana Quintanilla MD 07/08/23 08:11 [facility] Past Medical History Medical History (Updated 07/08/23 @ 07:50 by Brendon Otto MD) ADHD GERD (gastroesophageal reflux disease) Hypertension Obstructive sleep apnea on CPAP BMI 39.0-39.9,adult Obesity Family History Family History Mother Hypertension Diabetes High cholesterol Father ADD (attention deficit disorder) Hypertension Sister No problems noted. Sister No problems noted. Daughter Asthma Daughter Asthma Son Asthma Surgical History Surgical History Hx of carpal tunnel repair Hx of wisdom tooth extraction Hx of section History of Problems with Anesthesia: No Social History Social History (Updated 06/27/23 @ 13:51 by Cindy Alex, GRICEL) Household Members: Family Housing: House Are you a primary client care specialist to a significant other at home: Yes (children, supportive family) Do you presently have visiting nurse or other home services: No Alcohol intake: current Alcohol intake frequency: a few times a month Patient Tobacco Use Status: Never used Tobacco Use of substances other than those prescribed or required for medical reasons: No Have you been hit, kicked, punched, or otherwise hurt by someone within the past year? If so, by whom?: No Are you DNR?: No Advance Directives: No Advance Directives Information Provided: Yes Advance Directives on File: No Recently lost weight without trying: No Nutrition Risks: No Nutritional Risk Patient : No FDLMP: 06/25/2023 : No Poor oral hygiene: No Meds Allergies Allergy/AdvReac Type Severity Reaction Status Date / Time No Known Allergies Allergy Verified 07/08/23 06:41 Home Medications Medication Instructions Recorded Confirmed Last Taken Type CPAP (CPAP Machine/Device) 01/31/23 06/17/23 Unknown History lisdexamfetamine 30 mg capsule 30 mg PO DAILY 01/31/23 06/27/23 07/07/23 History (Vyvanse) lisinopril 10 1 tab PO DAILY 01/31/23 06/27/23 07/07/23 History mg-hydrochlorothiazide 12.5 mg tablet cholecalciferol (vitamin D3) 25 25 mcg PO DAILY 02/14/23 06/27/23 07/06/23 History mcg (1,000 unit) capsule multivitamin 1 tab PO DAILY 06/27/23 06/27/23 07/06/23 History Exam Airway Mallampati Class: II TM Dist: >3cm Neck ROM: Full Loose/Missing/Broken Teeth: No Heart: RRR Lungs: CTA Assessment and Plan Assessment Anesthesia Assessment: Anesthesia Plan Discussed Final Anesthetic Review History of Problems with Anesthesia: No NPO: Yes ASA Class: III Final Preanesthetic Review: Meds/Allgs Chart Reviewed, Consent Obtained/Reviewed and Anes Risks/Benef Reviewed Patient Risk: Intermediate Procedure Risk: Intermediate Anesthetic Plan Anesthetic Plan: GA Disposition: Standard PACU
[2023-07-08] VITALS (23 sets, daily range): BP systolic 145–174; BP diastolic 70–102; PULSE 78–114; RESP 12–18; TEMP 36–36.7; O2SAT 97–100; BMI 39.1
[2023-07-08 06:27] LABS: UPreg QC Valid YES; Urine Pregnancy NEGATIVE (NEGATIVE)
[2023-07-08] MEDS: Lactated Ringers 1,000 ML 999 ML IV (06:53)
[2023-07-08] MEDS: Aprepitant 32 MG/4.4 ML VIAL IVPUSH (06:53)
--- NOTE | 2023-07-08 07:45 | PM.OP ---
Brief Operative Note Date of Service: 07/08/23 Pre-op diagnosis: Severe obesity with comorbidities (see below) Post-op diagnosis: same (& abdominal adhesions) Procedure: INITIAL PATIENT BMI ON PRESENTATION AT OUR OFFICE: 39.5 kg/m2 LAST BMI BEFORE SURGERY: 36.7 kg/m2 COMORBIDITIES: sleep apnea on CPAP, hypertension, ADHD, GERD, diaphragmatic hernia, liver steatosis, liver fibrosis ?The patient presented to the Weight Management Program with significant obesity that was negatively impacting the patient's comorbidities as listed above.? The program is a phased program with a special focus on preoperative medical weight management to promote substantial weight loss and prepare the patients for the second phase of the program: bariatric surgery. The patient participated in an intensive weekly lifestyle ?intervention and exercise program during which the patient ?has lost between the initial office visit and the last preoperative visit 26.9lbs, or 11% of initial actual body weight. It was deemed appropriate for the patient to now have bariatric surgery. In light of the current Covid-19 pandemic and the well documented strong association of obesity and increased risk of worse outcomes if infected with Covid-19 (REFERENCES:https://pubmed.ncbi.nlm.nih.gov/95925868/,?https://pubmed.ncbi.nlm.nih.gov/42567850/), any delay in undergoing bariatric surgery may lead to the patient's worsening health condition and increased?risk of more severe Covid-19 disease if infected. In addition a recent?study from [facility] published in [employer] on 10/08/2021 ([email or web address]) found that, among patients with obesity, substantial weight loss achieved with surgery was associated with improved outcomes of COVID-19 infection. The findings suggest that obesity can be a modifiable risk factor for the severity of COVID-19 infection. In addition, the patient met the BMI-criteria for bariatric surgery based on the BMI on initial presentation. The patient should not be penalized for achieving such weight loss because ?it is not sustainable long-term without surgical intervention and it was achieved in preparation for bariatric surgery ?under my direction and based on my published research ([email or web address]).[email or web address] and?https://www.soard.org/article/V7814-6535(30)20382-X/pdf) ?that a 10% preoperative weight loss improves long-term weight loss after surgery and reduces perioperative complications.? Insurance carriers such as [facility] have endorsed my recommendations ?and have included in their policies criteria to include a 10% preoperative weight loss requirement. PROCEDURE: Esophago-gastroscopy, laparoscopic lysis of adhesions, laparoscopic sleeve gastrectomy and laparoscopic gastropexy INDICATIONS: This is a 37 year-old female who was electively scheduled for laparoscopic, possibly open sleeve gastrectomy. The risks and complications of the procedure were discussed with the patient in advance, particularly the possibility of ; pulmonary embolism; staple line leak; bleeding; GERD; cardiac, pulmonary, or renal complications; as well as long-term problems such as insufficient weight loss, vitamin deficiency, strictures, or ulcers. The patient understood all the risks, and was in agreement to proceed with surgery. DESCRIPTION OF PROCEDURE: After informed consent was obtained from the patient, the patient was given preoperative antibiotics, and was transferred to the operating room. After successful induction of general anesthesia, pneumatic compression devices were placed on both lower extremities. An upper endoscopy was performed next. The oropharynx and esophagus appeared to be within normal limits. There was no significant diaphragmatic hernia present consistent with the findings of the preoperative upper GI. The stomach was entered. Then after all fluid and air were suctioned and the stomach was fully decompressed, the scope was withdrawn and secured in the mid esophagus. The patient was then prepped and draped in the usual sterile manner, and abdominal access was established at the right upper quadrant with the Lissy technique. A 12 mm blunt port was inserted, and the abdomen was insufflated with CO2 to a pressure of 15 mmHg. Under direct visualization, additional ports were placed, specifically two 5 mm Versi-step ports to the left upper quadrant, and a 5 mm Versi-Step port to the right upper quadrant. 1% lidocaine plain was used to infiltrate all port sites as well as all fascia defects. There were adhesions in the abdomen involving the omentum and the left anterior abdominal wall. Those were lysed completely with the ultrasonic device. Following that, the patient was placed in a steep reverse Trendelenburg position. An additional 5 mm port was placed to the right flank for the Mediflex retractor that was used to retract the left lobe of the liver. The gastro-esophageal fat pad was opened with the ultrasonic device (Thunderbeat, Olympus) and the anterior esophagus and hiatus were exposed. The angle of His was opened with the ultrasonic device the fundus of the stomach from any diaphragmatic and splenic attachments. I then opened the gastrocolic ligament between the transverse colon and the greater curvature of the stomach with the ultrasonic device to enter the lesser sac and facilitate the ligation of the short gastric vessels. I started at a mid-point along the greater curvature and using the Thunderbeat, all short gastric vessels were divided all the way to the angle of His until the left glenys was completely dissected at its entirety. I then divided the gastro-colic ligament distally to a distance of about 3-4 cm proximal to the pylorus. The stomach was then divided transversely with two Endo DAVID-45 purple and four DAVID-60 articulating purple loads using the SIGNIA stapler and loads. Every effort was made that the gastric sleeve had a tubular shape and an even caliber throughout. Once the sleeve resection was completed, the staple line of the gastric sleeve was reinforced with Hemoclips. The resected stomach was retrieved without difficulty from the Lissy port. A gastropexy was then performed in order to prevent postoperative GERD and partial gastric volvulus. Several interrupted 2.0 Surgidac sutures were placed between the sleeve's staple line and the previously divided greater omentum and gastro-colic ligament using the Endo-Stitch device. ?An upper endoscopy was performed. There was no narrowing at the GE junction. The scope was easily advanced all the way to the pylorus which was clearly visualized. There was no narrowing anywhere and the sleeve's caliber was even throughout. The sleeve's staple line was inspected and there was no evidence of ischemia, bleeding or dehiscence. At that point the gastroscope was withdrawn from the patient?s mouth while we were decompressing the bowel and the stomach from any remaining air. I looked into the lesser sac to see how the sleeve was situating and it was situating well. There was no bleeding from the staple line, spleen, or short gastric vessels. The Mediflex retractor was removed, and the undersurface of the liver was inspected and there was no bleeding. The patient was placed in supine position. I closed the fascial defect of the 12 mm port site with a figure of eight #1 Polysorb suture. Then 30cc Ropivacaine plain with 10 mg of Dexamethasone were used to infiltrate the fascial closure as well as all skin incisions. A total of 6.5ml Zynrelef was applied in the Lissy wound. At this point, the abdomen was deflated, all ports were removed under direct vision, and no bleeding was noted from any of the port sites. The skin incisions were irrigated with saline and were closed with 4-0 absorbable monofilament sutures. Steri-Strips and OpSites were used to cover all incisions. The patient was extubated and was transferred in stable condition to the recovery room for further care. I was present and performed all celestin parts of the procedure. Mr Vick was the assistant produce manager. There were no residents to assist with this case. Bernardo Otto MD, PhD, FACS Surgeon: Brendon Otto MD Anesthesia: GETA, local and other (TAP block and 6.5ml Zynrelef) Was an Progressive Care Unit Registered Nurse used for this Procedure?: No Progressive Care Unit Registered Nurse: Andrei Vick Estimated blood loss (mL): 10 IV fluids (mL): 2,000 Urine output (mL): 0 (No Reynaga to record output) Pathology: other (Stomach) Condition: stable Disposition: PACU
--- NOTE | 2023-07-08 07:48 | P.PNGS_ITS ---
Subjective Subjective Date of Service: 07/09/23 Interval history: Feels well. Mild incisional pain. She is tolerating phase 1 bariatric diet Physical Exam 2 Vital Signs: Vital Signs: Last Vital Signs Temp 97.0 F 07/08/23 06:36 Pulse 86 07/08/23 06:36 Resp 15 07/08/23 06:36 BP 146/89 H 07/08/23 06:36 Pulse Ox 98 07/08/23 06:36 O2 Del Method Room Air 07/08/23 06:36 BMI result Body Mass Index 36.3 GI: Inspection: Yes normal to inspection, Yes incision (clean, dry and intact) and Yes obesity Palpation (GI): Soft to palpation Extrem: Right lower extremity: normal to inspection (no calf tenderness) L eft lower extremity: normal to inspection (no calf tenderness) Objective Data Active Medications Lactated Ringer's (Lr) 1,000 mls @ 100 mls/hr IVCONT .Q10H ERIN Lactated Ringer's (Lr) 1,000 mls @ 999 mls/hr IV .Q1H1M ERIN Stop: 07/08/23 08:30 Last Admin: 07/08/23 06:53 Dose: 999 mls/hr Documented By: LORENZO Labs 07/09/23 05:40 07/09/23 05:40 Labs: Laboratory Results - last 24 hr 07/08/23 07/08/23 06:20 06:41 Urine Test NEGATIVE Blood Type O Positive Antibody Screen NEGATIVE Procedures Date of Service Date of Service: 07/09/23 Progress Note: A&P Assessment and plan (1) Obesity: Status: Acute Assessment and Plan: s/p laparoscopic sleeve gastrectomy, lysis of adhesions and gastropexy Doing well Will check am labs and if OK the patient will be discharged home (2) BMI 35.0-35.9,adult: Status: Acute (3) Obstructive sleep apnea on CPAP: Status: Acute (4) Hypertension: Status: Acute (5) GERD (gastroesophageal reflux disease): Status: Acute (6) ADHD: Status: Acute (7) Steatosis, liver: Status: Acute (8) Liver fibrosis: Status: Acute (9) Diaphragmatic hernia: Status: Acute (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 Quality Stroke Does the patient have a stroke diagnosis?: No VTE Prior VTE?: No VTE Risk Level:: Surgical - moderate VTE Device Contraindication: N/A - Device Ordered VTE Drug Contraindication: Treatment Not Indicated
--- NOTE | 2023-07-08 08:35 | PHA.MEDREC ---
Pharmacy Consult ? Medication Reconciliation Pharmacy has reviewed the medication reconciliation.
--- NOTE | 2023-07-08 10:00 | PM.DS ---
DS: Providers Provider Date of Service: 07/09/23 Date of admission: 07/08/23 06:18 Primary care physician: Sherry De Jesus MD DS: Diagnosis Discharge Diagnosis (1) Obesity: Status: Acute (2) BMI 35.0-35.9,adult: Status: Acute (3) Obstructive sleep apnea on CPAP: Status: Acute (4) Hypertension: Status: Acute (5) GERD (gastroesophageal reflux disease): Status: Acute (6) ADHD: Status: Acute (7) Steatosis, liver: Status: Acute (8) Liver fibrosis: Status: Acute (9) Diaphragmatic hernia: Status: Acute DS: Summary Hospital Course Hospital Course: ADMITTING DIAGNOSIS: obesity, mazin, htn, gerd ? DISCHARGE DIAGNOSIS: same, s/p laparoscopic sleeve gastrectomy ? PAST SURGICAL HISTORY: carpal tunnel, cesarian section ? PROCEDURE: upper endoscopy, laparoscopic sleeve gastrectomy ? DISCHARGE SUMMARY: ? History of Present Illness: ? The patient is a?37 year-old woman with a BMI of?39.5 kg/m2 and associated co-morbidities as described above. The patient had extensive work-up,lost?20.4 lbs preoperatively and was electively scheduled for laparoscopic, possible open sleeve gastrectomy and gastropexy. Risks and complications of the surgery were discussed with the patient in advance, particularly the possibility of , pulmonary embolism, anastomotic leak, bleeding, bowel injury, GERD, cardiac, renal or pulmonary complications. The patient understood all the risks and was in agreement with the surgical plan. ? Hospital Course: ? The patient underwent an uneventful laparoscopic sleeve gastrectomy with gastropexy on the day of admission. Postoperatively, the patient was transferred to the surgical floor. The patient received IV Acetaminophen and IV dilaudid for pain control. Patient was started on bariatric phase 1 diet POD #0. On postoperative day one, the patient was feeling well without nausea, vomiting, fevers, or tachycardia. The patient had some mild incisional pain and the abdomen was soft. ? On the morning of postoperative day one, the patient was continued on 1 ounce of water or ice every half hour. During the day, the patient did fairly well, having some incisional pain, but able to ambulate adequately and to tolerate liquids well. ? Since the patient is doing well, we decided that the patient was ready to be discharged. The patient was given instructions to follow-up with me next week and to call my office for any fever over 101, persistent abdominal pain, nausea, vomiting, GERD, symptoms of DVT such as calf tenderness, or leg swelling, or pulmonary embolism such as chest pain or shortness of breath. The patient was also instructed to drink 40-60 ounces of liquids per day using the 1-ounce cups. The patient had been given prescriptions for Tylenol for pain, Zofran prn for nausea, and pantoprazole and carafate previously. The patient was encouraged to ambulate and use the incentive spirometer. The patient was allowed to shower, but no baths, and encouraged to stay active at home. All of these instructions were given to the patient personally. All questions were answered and the patient understood all instructions, the instructions were also given to the patient in print. Time Spent with Patient Time attestation: Total time managing care of this patient today ____ minutes. Discharge coordination time: Less than 30 minutes Quality: Safe Use of Opioids Does Pt have an Active Cancer Diagnosis on the Problem List?: No Quality: Stroke Does the patient have a stroke diagnosis?: No Physical Exam Vital Signs: Vital Signs: Last Vital Signs Temp 97.0 F 07/08/23 06:36 Pulse 86 07/08/23 06:36 Resp 15 07/08/23 06:36 BP 146/89 H 07/08/23 06:36 Pulse Ox 98 07/08/23 06:36 O2 Del Method Room Air 07/08/23 06:36 BMI result Body Mass Index 36.3 DS: Data Data Completed and Pending Pending studies at discharge: Pending at discharge 07/08/23 09:12 Surgical [PTH] Routine Labs on day of discharge: Laboratory Results - last 24 hr 07/08/23 07/08/23 06:20 06:41 Urine Test NEGATIVE Blood Type O Positive Antibody Screen NEGATIVE Discharge Plan Discharge Anticipated Discharge Date/Time: 07/09/23 10:02 Patient Disposition: Home, Self-Care Discharge Diagnosis: s/p laparoscopic sleeve gastrectomy Referrals: Sherry De Jesus MD [Primary Care Provider] - 1 Week Discharge Medications: Continued (DME) CPAP Machine/Device Device See Rx Instructions .Route Rx Instructions: As directed Vyvanse 30 mg capsule 30 mg PO DAILY pantoprazole 40 mg tablet,delayed release (DR/EC) 40 mg PO DAILY Qty: 30 2RF sucralfate 100 mg/mL suspension 10 ml PO BID Qty: 400 2RF ondansetron 4 mg tablet,disintegrating 4 mg PO Q12H Qty: 20 0RF Rx Instructions: Only take one every 12 hours as needed if you have nausea Held lisinopril-hydrochlorothiazide 10-12.5 mg tablet 1 tab PO DAILY Hold Instructions: Resume on 07/10/23. Check your blood pressure every evening and send it to Dr. Otto. Do not take the medication before you hear from Dr. Otto. Do not take the medication if your blood pressure is below 120/70 mmHg. Discontinued mecobalamin (vitamin B12) 1,000 mcg tablet,disintegrating 1,000 mcg sublingual DAILY Qty: 30 2RF Rx Instructions: place tablet under tongue and allow to dissolve for at least30 secs before swallowing multivitamin Tablet 1 tab PO DAILY cholecalciferol (vitamin D3) 25 mcg (1,000 unit) capsule 25 mcg PO DAILY Discharge Orders: Discharge Order (Routine); Ordered 07/09/23 Ordered By: Brendon Otto Activity on Discharge: No heavy lifting Stand Alone Forms: Patient Portal Discharge page Care Plan Goals: weight loss Health Concerns: obesity Plan of Treatment: No tub baths, sex or returning to work until discussed at first post op appointment. No exercise, alcohol, tobacco or illegal drug use. Continue to use incentive spirometer hourly while awake. Walk in home for 5- 10 minutes every 2 hours during the first week. Follow all instructions in the bariatric handbook and call with any questions.Discharge Instructions 1. Please call your doctor or come back to the emergency room should any new symptoms arise. 2. You will receive a courtesy call from [facility] 24-48 hours after discharge. 3. Activity: abstain from alcohol, practice limited stair climbing, no bending, no driving, no exercise, no illicit substances, no lifting, no sex, no tub bath, no work. 4. Diet: continue as discussed with Dr. Otto. 5. Dressing Change/Wound Care: Your incision is covered by clear bandages and guaze underneath. If the area is tender, you may apply an ice pack for short intervals (no more than 20 minutes on, followed by at least 20 minutes off). Do not apply heat. Do not use creams, lotions, or topical antibiotics unless instructed to do so by your surgeon. These can cause infection or allergic reaction. 6. Call your doctor if: - Your temperature exceeds 101.5 F - You experience excessive pain or swelling - You have an unexpected reaction to medication - You have excessive bleeding - You experience continued vomiting/nausea - Your incision begins to separate - Your incision shows signs of infection such as increased redness, swelling, excessive pain, heat, or drainage (light blood or clear fluid is normal) 7. General instructions: No lifting greater than 5 lbs for 1 week and not more than 20lbs the next 3?weeks. No driving until seen at the office in 5-7 days after surgery. If you do not move your bowels in the next 2 days, please tell?Dr. Otto. Please walk around your home every hour or two to prevent blood clots from forming in your legs. You do not need to wake from sleeping to walk. Please sleep in a bed or couch to prevent kinking at the hips and knees. Please take your incentive spirometer (your lung production ski repairer) home with you and use it for the next few days to prevent pneumonia. You may shower, no hot tubs, baths or swimming pools.?Please follow the post op diet instructions you are?given by Dr Chandni riggs? and text me daily at 5-6pm for an update.?If you have any issues or concerns or questions please communicate this to him via text.? The Celebrate shakes have all of the bariatric vitamins you need if you consume these shakes. If you are drinking other protein shakes, you will need to purchase the Celebrate multivitamins and calcium that are available in the hospital gift shop on the first floor of the main hospital.??Do not take anything without first discussing with Dr Otto. Please make sure you are consuming at least 40 ounces of fluids per day starting the?day AFTER your discharge from the hospital. Always drink 1-2 ml per minute using the 5ml?syringe. If you drink faster you may experience?bloating,?gas pain, burping, nausea or heartburn. In that case please slow down your pace and use the syringe to?understand better the?proper?pace and volume of drinking. Do not hesitate to contact the office with any questions at . The patient's medical history has been reviewed and they are considered low risk for post op DVT and therefore DVT prophylaxis is not considered necessary. Travel after surgery was reviewed. The patient has not disclosed any travel plans during the first 30 days after surgery and they have been advised that within the first 30 days after surgery any bus, plane, train or car travel over 2 hours in duration is contraindicated due to the possibility of developing blood clots from immobility. Any travel, needs to include periods of ambulation of 10 minutes in duration every 2 hours.? The patient was instructed to discuss any plans for travel during this period with their bariatric surgeon. Assessment: stable s/p laparoscopic sleeve gastrectomy Discharge Date/Time: 07/09/23 09:24
[2023-07-08] MEDS: fentaNYL citrate/PF 100 MCG/2 ML VIAL 50 MCG IVPUSH (10:17)
[2023-07-08] MEDS: oxyCODONE HCl Immed Release 5 MG TABLET PO (10:19)
--- NOTE | 2023-07-08 10:24 | PHA.MEDREC ---
Pharmacy Consult ? Medication Reconciliation Pharmacy has reviewed the medication reconciliation. noticed that pantoprazole was for a 90 day supply so confirmed.
[2023-07-08] MEDS: fentaNYL citrate/PF 100 MCG/2 ML VIAL 25 MCG IVPUSH ×2 (10:41→10:49)
[2023-07-08 10:59] LABS: Hematocrit 35.4 % (37.0-47.0); Hemoglobin 11.9 g/dl (12.0-16.0)
[2023-07-08 11:10] LABS: Anion Gap 17 (12-20); Blood Urea Nitrogen 13 mg/dL (9-16); Calcium 9.4 mg/dL (8.4-10.2); Carbon Dioxide 18 mmol/L (22-29); Chloride 103 mmol/L (96-108); Creatinine Clr Calc Pharmacy 86.8; Estimated Glomerular Filt Rate 58; Glucose Random 153 mg/dL (60-115); Potassium 3.5 mmol/L (3.3-5.1); Sodium 134 mmol/L (135-145)
[2023-07-08] MEDS: ceFAZolin Sodium/Dextrose,Iso 2 GM/50 ML PIGGYBACK IV (12:47)
[2023-07-08] MEDS: Lactated Ringers 1,000 ML 100 ML IVCONT ×2 (12:50→23:14)
[2023-07-08] MEDS: Acetaminophen 1,000 MG/100 ML PIGGYBACK 400 MG IV ×2 (15:24→21:25)
[2023-07-08] MEDS: ondansetron HCL 4 MG/2 ML VIAL IVPUSH (17:00)
[2023-07-08] MEDS: lisinopriL 10 MG TABLET PO (20:07)
[2023-07-08] MEDS: Famotidine/PF 20 MG/2 ML VIAL IVPUSH (20:07)
[2023-07-08] MEDS: 0.9 % Sodium Chloride Flush 3 ML SYRINGE IVFLUSH (20:09)
[2023-07-09] MEDS: HYDROmorphone HCl 0.5 MG/0.5 ML SYRINGE 0.25 MG IVPUSH (02:05)
[2023-07-09] MEDS: ondansetron HCL 4 MG/2 ML VIAL IVPUSH (02:06)
[2023-07-09 03:24] VITALS: BP 150/86; PULSE 81; RESP 16; TEMP 36.1; O2SAT 99
[2023-07-09] MEDS: Acetaminophen 1,000 MG/100 ML PIGGYBACK 400 MG IV (05:56)
[2023-07-09 07:18] LABS: MANUAL DIFF FLAG NO
[2023-07-09 07:27] VITALS: BP 142/80; PULSE 82; RESP 16; TEMP 36.8; O2SAT 97
[2023-07-09 07:31] LABS: Basophils Percent Auto 0.1 % (0-2); Eosinophils Percent Auto 0.1 % (0-4); Hematocrit 32.7 % (37.0-47.0); Imm Gran Abs Auto 0.05 X10*3/uL (0.00-0.03); Imm Gran Pct Auto 0.5 % (0.0-0.4); Lymphocytes Absolute Auto 1.4 X10*3/uL (1.2-4.9); Lymphocytes Percent Auto 13.2 % (20-40); Mean Corpuscular HGB Conc 33.6 g/dl (31.0-35.0); Mean Corpuscular Volume 95.1 fL (80.0-98.0); Mean Platelet Volume 10.4 fL (9.4-12.3); Monocytes Percent Auto 9.5 % (2-11); Neutrophils Absolute Auto 8.3 x10*3/uL (2.0-8.3); Neutrophils Percent Auto 76.6 % (45-73); Platelet Count 298 X10*3/uL (160-400); Red Blood Count 3.44 X10*6/uL (4.20-5.50); Red Cell Distribution Width 11.6 % (11.0-16.0); White Blood Count 10.8 X10*3/uL (4.8-10.8)
[2023-07-09] MEDS: Famotidine/PF 20 MG/2 ML VIAL IVPUSH (07:45)
[2023-07-09] MEDS: lisinopriL 10 MG TABLET PO (07:45)
[2023-07-09 08:13] LABS: Anion Gap 12 (12-20); Blood Urea Nitrogen 9 mg/dL (9-16); Calcium 9.4 mg/dL (8.4-10.2); Carbon Dioxide 24 mmol/L (22-29); Chloride 104 mmol/L (96-108); Creatinine Clr Calc Pharmacy 105.1; Estimated Glomerular Filt Rate > 60; Glucose Random 101 mg/dL (60-115); Potassium 3.9 mmol/L (3.3-5.1); Sodium 136 mmol/L (135-145)
--- NOTE | 2023-07-09 09:24 | MHC.CM.PN ---
PT REPORTS SHE LIVES WITH HER BOYFRIEND AND THREE CHILDREN AGES 18, 7, AND ALMOST 2 YO. SHE CONFIRMS SHE DOES HAVE HELP TO CARE FOR THE SMALLER CHILDREN WHEN SHE GOES HOME SHE USES A CPAP FOR DME AND HAS NO SERVICES PT WORKS AND IS INDEPENDENT WITH CARE SHE COMPLETED A HCP TODAY NAMING HER MOTHER AND SISTER HER AGENTS PCP: IGNACIO CORCORAN DCP: HOME TODAY WITH NO SERVICES VIA FAMILY TRANSPORT
--- NOTE | 2023-07-09 09:54 | MHC.CM.PN ---
Patient discharged home self care. She has arranged for transportation home.
--- NOTE | 2023-07-09 12:34 | HO.POSTANES ---
Post Anesthesia Evaluation Post Anesthesia Evaluation Date of Service: 07/09/23 Vital Signs: Vital Signs Temp Pulse Resp BP Pulse Ox O2 Del Method 07/09/23 07:27 98.3 F 82 16 142/80 H 97 Room Air 07/09/23 03:24 97 F 81 16 150/86 H 99 Room Air Anesthesia: General Endotracheal-GETA Mental Status: Awake Pain Control: Satisfactory Nausea/Vomiting: None Hydration: Adequate Anesthesia-Related Issues: No Anes. Related Issues
== END 2023-07-09 09:24 | disposition home or self-care (01) | DRG 403 ==
LOC: HO.SSSA 10:02 → HO.S3 12:06
PROVIDERS: Nurse Practitioner; Physician Assistant Surgical; Admitting Provider Surgery; PCP Internal Medicine; Visit Provider Surgery
PROC: 0DB64Z3 Excision of Stomach, Percutaneous Endoscopic Approach, Vertical (ICD-10-PCS; CPT 43845; principal; 2023-07-08 07:30)
DX: E66.01 Morbid (severe) obesity due to excess calories (principal); K74.00 Hepatic fibrosis, unspecified; F90.9 Attention-deficit hyperactivity disorder, unspecified type; K76.0 Fatty (change of) liver, not elsewhere classified; K66.0 Peritoneal adhesions (postprocedural) (postinfection); G47.33 Obstructive sleep apnea (adult) (pediatric); I10 Essential (primary) hypertension; K21.9 Gastro-esophageal reflux disease without esophagitis; Z68.36 Body mass index [BMI] 36.0-36.9, adult; Z79.899 Other long term (current) drug therapy
CPT/HCPCS: 36415; 80048; 81025; 85014; 85018; 85025; 86850; 86900; 86901; 88304; 88305; 88307; 88342; 90686; A4649; C9088; C9145; J0131; J0690; J1100; J1170; J2250; J2405; J2795; J3010

== ENCOUNTER → 2023-07-08 06:18 | Outpatient (BNV) | payer OTHER, SELFPAY | PROVIDERS: Admitting Provider Surgery; PCP Internal Medicine; Visit Provider Surgery | DX: E66.9 Obesity, unspecified (principal); Z68.39 Body mass index [BMI] 39.0-39.9, adult; K66.0 Peritoneal adhesions (postprocedural) (postinfection) | CPT/HCPCS: 43659; 43775 ==

== ENCOUNTER 2023-07-15 10:42 | Outpatient (AMB) | payer OTHER, SELFPAY ==
--- NOTE | 2023-07-15 11:22 | MHC.OFFVISWM ---
Intake VS Expanded 07/15/23 11:29 BP 126/61 Blood Pressure Location Rt brachial Blood Pressure Position Sitting Pulse 83 Pulse Source Pulse Oximeter Temp 97.3 F Temperature Source Temporal Artery Scan Pulse Oximetry 99 Oxygen Delivery Method Room Air Height 5 ft 6 in Weight 214 lb 3.2 oz BMI 34.6 Body Fat % 41.3 Body Fat Mass 88.4 Fat Free Mass 125.6 Visceral Fat Rating 9.0 Body Water % 42.0 Body Water Mass 90.0 Muscle Mass/Score 119.2 Basal Metabolic Rate/Score 1,755 Intake Visit Reasons: (OV) 7 Days PO LSG 07/08/23 Allergies No Known Allergies Allergy (Verified 07/15/23 11:27) HPI HPI Comments History of Present Illness Details 37-year-old female returns to the office today, postop day 7., status post sleeve gastrectomy on 07/08/2023. norman 3 celebrate 4 in 1 shake 1 scoop each and 30 additional oz water daily pos bm PFSH Medical History (Updated 07/10/23 @ 00:03 by Milla Eisenberg) Diaphragmatic hernia BMI 35.0-35.9,adult BMI 37.0-37.9, adult ADHD GERD (gastroesophageal reflux disease) Hypertension Obstructive sleep apnea on CPAP BMI 39.0-39.9,adult Obesity Surgical History (Updated 07/15/23 @ 11:31 by Char Linares CMA) S/P laparoscopic sleeve gastrectomy Hx of carpal tunnel repair Hx of wisdom tooth extraction Hx of section Family History Mother Hypertension Diabetes High cholesterol Father ADD (attention deficit disorder) Hypertension Sister No problems noted. Sister No problems noted. Daughter Asthma Daughter Asthma Son Asthma Social History Household Members: Spouse and Children Housing: House Are you a primary spiritual care coordinator to a significant other at home: Yes (children, supportive family) Do you presently have visiting nurse or other home services: No 75 years or older and lives alone: No Alcohol intake: current Alcohol intake frequency: a few times a month Patient Tobacco Use Status: Never used Tobacco service: No Physical Exam Vital Signs: Last Vital Signs Temp 97.3 F 07/15/23 11:29 Pulse 83 07/15/23 11:29 BP 126/61 10/03/23 11:29 Pulse Ox 99 07/15/23 11:29 Oxygen Delivery Method Room Air 07/15/23 11:29 BMI result Body Mass Index 34.6 GI Inspection: Yes incision (c/d/i) Assessment & Plan Assessment & Plan (1) S/P laparoscopic sleeve gastrectomy: Code(s): Z98.84 - Bariatric surgery status Plan: POD 7 s/p LSG on 07/08/[address] Otto Weight loss prior to surgery was 20.4 pounds or 8.3 % TBWL. Original weight on 02/14/2023 was 244.8 pounds and op weight was 224.4 pounds. Be sure to text Dr Otto exactly 1 week after surgery your weight from your home scale so he can adjust your meal plan. Continue meal plan until f/u w rojas in 2 weeks May shower, no submersion in bath for another week Continue abdominal binder with activity and exercise for the next 2 weeks. Exercise prior to surgery was elliptical, walking, may resume No abdominal exercises for 6 weeks post operatively Will be emailed link to post op video for review Reminded of the pace of drinking, 2 mL per minute, 1 oz/15 min. Coding Level of Care Code Global (92626) Diagnoses S/P laparoscopic sleeve gastrectomy Z98.84
[2023-07-15 11:29] VITALS: BP 126/61; PULSE 83; TEMP 36.3; O2SAT 99; BMI 34.6
== END 2023-07-15 12:00 | disposition home or self-care (01) ==
PROVIDERS: Visit Provider Physician Assistant Surgical
DX: Z98.84 Bariatric surgery status (principal)
CPT/HCPCS: 99024

== ENCOUNTER → 2023-07-15 10:42 | Outpatient (BNVA) | payer OTHER, SELFPAY | PROVIDERS: Visit Provider Physician Assistant Surgical ==